=== PATIENT | male | born 1960 | race Caucasian/White ===

== ENCOUNTER 2017-10-01 11:47 | Inpatient (IN) | payer OTHER ==
[2017-09-28 15:42] LABS: BASOPHILS # (AUTO) 0.15 x10^3/uL (0-0.1); BASOPHILS % (AUTO) 2 % (0-1); EOSINOPHILS % (AUTO) 3 % (1-7); LYMPHOCYTES # (AUTO) 2.05 x10^3/uL (1-3.4); LYMPHOCYTES % (AUTO) 21 % (22-44); MD NO; MEAN CORPUSCULAR HEMOGLOBIN 30.8 pg (27.5-34.5); MEAN CORPUSCULAR HGB CONC 34.6 g/dL (33.2-36.2); MEAN CORPUSCULAR VOLUME 89.2 fL (81-97); MEAN PLATELET VOLUME 8.4 fL (7.4-10.4); MONOCYTES # (AUTO) 0.99 x10^3/uL (0.2-0.8); MONOCYTES % (AUTO) 10 % (2-9); NEUTROPHILS % (AUTO) 64 % (42-75); PLATELET COUNT 286 x10^3/uL (130-400); RED BLOOD COUNT 4.93 x10^6/uL (4.38-5.82); RED CELL DISTRIBUTION WIDTH 13.1 % (9.4-14.8)
[2017-09-28 15:42] LABS: MICROSCOPIC NOT IND
[2017-09-28 15:44] LABS: CULTURE INDICATED? NO
[2017-09-28 15:49] LABS: INTERNATIONAL NORMALIZED RATIO 0.98 (0.93-1.1); PROTHROMBIN TIME 10.1 Seconds (9.6-11.5)
[2017-09-28 15:52] LABS: ANION GAP 7 mmol/L (5-15); CALCIUM 8.5 mg/dL (8.5-10.1); CHLORIDE 106 mmol/L (98-107); CREATININE 1.05 mg/dL (0.7-1.3)
[~2017-10-01] VITALS: Ht 175.3 cm; Wt 82.0 kg
[~2017-10-01 11:47] MED LIST: AMOX1TAB64 PO; BACITRACIN 50,000 UNIT ONE; CHOL10003 PO; CYCL-259 PO; FAMO-79 PO; GABA300C10 PO; GABA800T2 PO; HYDR-3307 PO; IBUP-11 PO; METH4TAB2 PO; ROSU10TA PO; THROMBIN 5,000 UNIT VIAL TP ONE; THYR60TA PO; synthroid PO
[2017-10-01 12:26] VITALS: BP 121/83
[2017-10-01] MEDS ORDERED: LACTATED RINGERS 1,000 ML IV SCH (12:31)
[2017-10-01] MEDS ORDERED: PNEUMOCOCCAL 23 VACCINE IM-VACC ONE (13:00)
[2017-10-01] MEDS ORDERED: PROPOFOL 100 ML ONE (13:59)
[2017-10-01] MEDS ORDERED: FENTANYL PF 250 MCG/5ML ONE (13:59)
[2017-10-01] MEDS ORDERED: MIDAZOLAM 1 MG/ML, 2ML ONE (13:59)
[2017-10-01] MEDS ORDERED: CEFAZOLIN 1,000 MG ONE ×2 (14:56)
[2017-10-01] MEDS ORDERED: ROCURONIUM 10 MG/ML,10ML ONE (15:08)
[2017-10-01] MEDS ORDERED: OXYcodone 5 MG/5 ML ORAL.SOL UDC PO PRN (15:30)
[2017-10-01] MEDS ORDERED: ONDANSETRON 2MG/ML, 2ML IVPush PRN (15:30)
[2017-10-01] MEDS ORDERED: ACETAMINOPHEN 325 MG TABLET PO PRN (15:30)
[2017-10-01] MEDS ORDERED: hydrALAzine 20 MG/ML, 1ML IV PRN (15:30)
[2017-10-01] MEDS ORDERED: PROMETHAZINE 12.5 MG SUPP PR PRN (15:30)
[2017-10-01] MEDS ORDERED: MEPERIDINE/PF 25MG/0.5ML IVPush PRN (15:30)
[2017-10-01] MEDS ORDERED: LABETALOL 5MG/ML, 20ML IV PRN ×2 (15:30→18:30)
[2017-10-01] MEDS ORDERED: DIAZEPAM 5 MG/ML, 2ML IVPush PRN (15:30)
[2017-10-01] MEDS ORDERED: ONDANSETRON 2MG/ML, 2ML ONE (15:59)
[2017-10-01] MEDS ORDERED: GLYCOPYRROLATE 0.4 MG/2 ML, 2ML ONE (16:01)
[2017-10-01] MEDS ORDERED: NEOSTIGMINE 1 MG/ML, 10ML ONE (16:01)
[2017-10-01] MEDS ORDERED: FENTANYL PF 100 MCG/2ML ONE (16:24)
[2017-10-01] MEDS ORDERED: HYDROmorphone 2 MG/ML, 1ML ONE (16:24)
[2017-10-01] MEDS ORDERED: ACETAMINOPHEN 650 MG/20.3 ML UDC ONE (16:24)
[2017-10-01] MEDS ORDERED: OXYcodone 5 MG/5 ML ORAL.SOL UDC ONE (16:25)
[2017-10-01] MEDS: FENTANYL PF 100 MCG/2ML IV PRN ×2 (16:33→16:41)
[2017-10-01] MEDS: HYDROmorphone 1 MG/ML, 1ML IV PRN ×3 (16:34→17:12)
[2017-10-01] MEDS ORDERED: BISACODYL 10 MG SUPP PR PRN (18:30)
[2017-10-01] MEDS ORDERED: ONDANSETRON 2MG/ML, 2ML IV PRN (18:30)
[2017-10-01] MEDS ORDERED: MAGNESIUM HYDROXIDE 8%, 30ML UDC PO PRN (18:30)
[2017-10-01] MEDS ORDERED: METHOCARBAMOL 1,000 MG in DEXTROSE 5% 100 ML IV ONE (18:30)
[2017-10-01] MEDS ORDERED: PROMETHAZINE 25 MG/ML, 1ML IM PRN (18:30)
[2017-10-01] MEDS ORDERED: DIPHENHYDRAMINE 50 MG CAPSULE PO PRN (19:00)
[2017-10-01] MEDS ORDERED: morphine SULFATE 10 MG/ML, 1ML IV PRN (19:00)
[2017-10-01] MEDS ORDERED: HYDROcodone/APAP 10/325 MG TABLET PO PRN (19:00)
[2017-10-01] MEDS ORDERED: ZOLPIDEM 5MG TABLET PO PRN (21:00)
[2017-10-01 21:30] VITALS: BP 119/58
[2017-10-01] MEDS: ATORVASTATIN 20 MG TABLET PO SCH (21:55)
[2017-10-01] MEDS: D5%-0.9% NACL+KCL 20MEQ 1,000 ML IV SCH (21:55)
[2017-10-01] MEDS: CEFAZOLIN PMX 1GM/50ML 50 ML IVPB SCH (22:34)
[2017-10-01 23:46] VITALS: BP 113/74
[2017-10-02] MEDS: METHOCARBAMOL 750 MG in DEXTROSE 5% 100 ML IV SCH ×3 (03:29→18:42)
[2017-10-02] MEDS ORDERED: LEVO125T PO (03:43)
[2017-10-02] MEDS ORDERED: LIOT5TAB3 PO (03:43)
[2017-10-02 03:51] VITALS: BP 104/68
[2017-10-02] MEDS ORDERED: ENOXAPARIN 40 MG/0.4 ML SQ SCH (06:00)
[2017-10-02] MEDS: LEVOTHYROXINE 125 MCG TABLET PO SCH (06:13)
[2017-10-02] MEDS: LIOTHYRONINE 5 MCG TABLET PO SCH ×3 (06:13→19:38)
[2017-10-02] MEDS: CEFAZOLIN PMX 1GM/50ML 50 ML IVPB SCH (06:14)
[2017-10-02 07:12] VITALS: BP 107/67
[2017-10-02] MEDS ORDERED: GABAPENTIN 400 MG CAPSULE PO SCH (08:00)
[2017-10-02] MEDS: SENNA/DOCUSATE TABLET PO SCH (09:10)
[2017-10-02 11:34] LABS: FREE T4 (FREE THYROXINE) 1.29 ng/dL (0.76-1.46); THYROID STIMULATING HORMONE 0.045 mIU/L (0.358-3.740)
[2017-10-02 13:16] VITALS: BP 113/71
[2017-10-02] MEDS ORDERED: DEXAMETHASONE 4 MG/ML, 5ML ONE (14:47)
[2017-10-02] MEDS: D5%-0.9% NACL+KCL 20MEQ 1,000 ML IV SCH ×2 (17:50→21:10)
[2017-10-02 19:03] VITALS: BP 139/85
[2017-10-02] MEDS: ATORVASTATIN 20 MG TABLET PO SCH (19:37)
[2017-10-02] MEDS: GABAPENTIN 400 MG CAPSULE PO SCH (19:37)
[2017-10-03 01:58] VITALS: BP 105/61
[2017-10-03] MEDS: METHOCARBAMOL 750 MG in DEXTROSE 5% 100 ML IV SCH ×3 (03:14→19:00)
[2017-10-03] MEDS: LEVOTHYROXINE 125 MCG TABLET PO SCH (04:07)
[2017-10-03] MEDS ORDERED: THROMBIN 5,000 UNIT VIAL TP ONE ×2 (06:32→09:17)
[2017-10-03] MEDS ORDERED: BUPIVACAINE/PF 0.5% ONE (06:32)
[2017-10-03] MEDS ORDERED: BACITRACIN 50,000 UNIT ONE (06:33)
[2017-10-03] MEDS ORDERED: EPINEPHRINE 1 MG/ML, 1ML ONE (06:33)
[2017-10-03] MEDS ORDERED: REMIFENTANIL 2 MG ONE ×2 (06:44→08:56)
[2017-10-03] MEDS ORDERED: PROPOFOL 10 MG/ML, 20ML ONE (06:44)
[2017-10-03] MEDS ORDERED: MIDAZOLAM 1 MG/ML, 2ML ONE (06:44)
[2017-10-03] MEDS ORDERED: LIDOCAINE-MPF 2% ,5ML ONE (06:44)
[2017-10-03] MEDS ORDERED: PROPOFOL 50 ML ONE ×2 (06:44→08:27)
[2017-10-03] MEDS ORDERED: FENTANYL PF 250 MCG/5ML ONE (06:44)
[2017-10-03] MEDS ORDERED: PHENYLEPHRINE 10 MG/ML ONE (06:49)
[2017-10-03] MEDS ORDERED: CEFAZOLIN 1,000 MG ONE ×3 (06:52→07:06)
[2017-10-03] MEDS ORDERED: ONDANSETRON 2MG/ML, 2ML ONE ×3 (06:53→07:06)
[2017-10-03] MEDS ORDERED: DEXAMETHASONE 4 MG/ML, 1ML ONE ×2 (06:53)
[2017-10-03] MEDS ORDERED: SUCCINYLCHOLINE 20 MG/ML, 10ML ONE (07:06)
[2017-10-03] MEDS ORDERED: NEOSTIGMINE 1 MG/ML, 10ML ONE (07:06)
[2017-10-03] MEDS ORDERED: BUPIVACAINE/PF-EPI 0.5% 1:200K INFIL ONE (08:00)
[2017-10-03] MEDS ORDERED: ACETAMINOPHEN 325 MG TABLET PO PRN (08:00)
[2017-10-03] MEDS ORDERED: LORazepam 2 MG/ML, 1ML IVPush PRN (08:00)
[2017-10-03] MEDS ORDERED: HYDROmorphone 1 MG/ML, 1ML IV PRN (08:00)
[2017-10-03] MEDS ORDERED: LABETALOL 5MG/ML, 20ML IV PRN (08:00)
[2017-10-03] MEDS ORDERED: hydrALAzine 20 MG/ML, 1ML IV PRN (08:00)
[2017-10-03] MEDS ORDERED: OXYcodone 5 MG/5 ML ORAL.SOL UDC PO PRN (08:00)
[2017-10-03] MEDS ORDERED: MEPERIDINE/PF 25MG/0.5ML IVPush PRN (08:00)
[2017-10-03] MEDS ORDERED: PROMETHAZINE 12.5 MG SUPP PR PRN (08:00)
[2017-10-03] MEDS ORDERED: ONDANSETRON 2MG/ML, 2ML IVPush PRN (08:00)
[2017-10-03] MEDS ORDERED: FENTANYL PF 100 MCG/2ML IV PRN (08:00)
[2017-10-03] MEDS ORDERED: KETAMINE 10 MG/ML, 20ML ONE (08:05)
[2017-10-03] MEDS ORDERED: BUPIVACAINE 0.25% ONE (09:14)
[2017-10-03] MEDS ORDERED: FENTANYL PF 100 MCG/2ML ONE (09:26)
[2017-10-03] MEDS: SENNA/DOCUSATE TABLET PO SCH (09:53)
[2017-10-03] MEDS: LIOTHYRONINE 5 MCG TABLET PO SCH ×2 (09:53→20:32)
[2017-10-03] MEDS: GABAPENTIN 400 MG CAPSULE PO SCH ×2 (09:53→20:32)
[2017-10-03] MEDS: CEFAZOLIN PMX 1GM/50ML 50 ML IV SCH ×2 (15:28→23:57)
[2017-10-03] MEDS: D5%-0.9% NACL+KCL 20MEQ 1,000 ML IV SCH (16:49)
[2017-10-03] MEDS: OXYcodone/APAP 5/325MG TABLET PO PRN ×2 (16:49→21:16)
[2017-10-03 18:54] VITALS: BP 108/68
[2017-10-03] MEDS ORDERED: METHOCARBAMOL 750 MG TABLET PO SCH (20:00)
[2017-10-03] MEDS: ATORVASTATIN 20 MG TABLET PO SCH (20:31)
[2017-10-03] MEDS ORDERED: METHOCARBAMOL 1,000 MG in DEXTROSE 5% 100 ML IV ONE (21:00)
[2017-10-03] MEDS ORDERED: METHOCARBAMOL 750 MG TABLET PO PRN (21:00)
[2017-10-03 23:50] VITALS: BP 115/70
[2017-10-04] MEDS: OXYcodone/APAP 5/325MG TABLET PO PRN ×5 (00:50→20:36)
[2017-10-04 04:00] VITALS: BP 124/81
[2017-10-04 05:18] LABS: MEAN CORPUSCULAR HEMOGLOBIN 30.8 pg (27.5-34.5); MEAN CORPUSCULAR HGB CONC 33.8 g/dL (33.2-36.2); MEAN CORPUSCULAR VOLUME 91.1 fL (81-97); MEAN PLATELET VOLUME 9.1 fL (7.4-10.4); PLATELET COUNT 230 x10^3/uL (130-400); RED BLOOD COUNT 3.89 x10^6/uL (4.38-5.82)
[2017-10-04 05:22] LABS: ANION GAP 6 mmol/L (5-15); CALCIUM 8.3 mg/dL (8.5-10.1); CHLORIDE 106 mmol/L (98-107)
[2017-10-04 05:23] LABS: CREATININE 0.97 mg/dL (0.7-1.3)
[2017-10-04] MEDS: LEVOTHYROXINE 125 MCG TABLET PO SCH (05:35)
[2017-10-04] MEDS: METHOCARBAMOL 750 MG in DEXTROSE 5% 100 ML IV SCH ×3 (05:38→22:00)
[2017-10-04 05:44] LABS: BASOPHILS # (AUTO) 0.02 x10^3/uL (0-0.1); BASOPHILS % (AUTO) 0 % (0-1); EOSINOPHILS # (AUTO) 0.01 x10^3/uL (0-0.4); EOSINOPHILS % (AUTO) 0 % (1-7); LYMPHOCYTES # (AUTO) 1.67 x10^3/uL (1-3.4); LYMPHOCYTES % (AUTO) 11 % (22-44); MD SCAN; MONOCYTES # (AUTO) 1.71 x10^3/uL (0.2-0.8); MONOCYTES % (AUTO) 11 % (2-9); NEUTROPHILS # (AUTO) 12.19 x10^3/uL (1.8-6.8); NEUTROPHILS % (AUTO) 78 % (42-75)
[2017-10-04 06:53] VITALS: BP 109/66
[2017-10-04] MEDS: D5%-0.9% NACL+KCL 20MEQ 1,000 ML IV SCH ×2 (08:00→21:20)
[2017-10-04] MEDS: SENNA/DOCUSATE TABLET PO SCH (08:29)
[2017-10-04] MEDS: LIOTHYRONINE 5 MCG TABLET PO SCH ×2 (08:30→20:36)
[2017-10-04] MEDS: GABAPENTIN 400 MG CAPSULE PO SCH ×2 (08:30→20:35)
[2017-10-04 13:00] VITALS: BP 119/69
[2017-10-04 18:54] VITALS: BP 114/68
[2017-10-04] MEDS: ATORVASTATIN 20 MG TABLET PO SCH (20:35)
[2017-10-05 00:52] VITALS: BP 125/73
[2017-10-05] MEDS: OXYcodone/APAP 5/325MG TABLET PO PRN ×2 (00:59→05:59)
[2017-10-05 05:34] LABS: BASOPHILS # (AUTO) 0.08 x10^3/uL (0-0.1); BASOPHILS % (AUTO) 1 % (0-1); EOSINOPHILS # (AUTO) 0.14 x10^3/uL (0-0.4); EOSINOPHILS % (AUTO) 2 % (1-7); LYMPHOCYTES # (AUTO) 1.49 x10^3/uL (1-3.4); LYMPHOCYTES % (AUTO) 16 % (22-44); MD NO; MEAN CORPUSCULAR HEMOGLOBIN 30.9 pg (27.5-34.5); MEAN CORPUSCULAR HGB CONC 34.3 g/dL (33.2-36.2); MEAN CORPUSCULAR VOLUME 90.2 fL (81-97); MEAN PLATELET VOLUME 8.9 fL (7.4-10.4); MONOCYTES # (AUTO) 1.07 x10^3/uL (0.2-0.8); MONOCYTES % (AUTO) 11 % (2-9); NEUTROPHILS # (AUTO) 6.62 x10^3/uL (1.8-6.8); NEUTROPHILS % (AUTO) 71 % (42-75); PLATELET COUNT 227 x10^3/uL (130-400); RED BLOOD COUNT 3.47 x10^6/uL (4.38-5.82)
[2017-10-05 05:38] LABS: CHLORIDE 103 mmol/L (98-107)
[2017-10-05 05:47] LABS: ANION GAP 7 mmol/L (5-15); CALCIUM 7.9 mg/dL (8.5-10.1); CREATININE 0.85 mg/dL (0.7-1.3)
[2017-10-05] MEDS: LEVOTHYROXINE 125 MCG TABLET PO SCH (05:51)
[2017-10-05] MEDS: METHOCARBAMOL 750 MG in DEXTROSE 5% 100 ML IV SCH (06:17)
[2017-10-05 06:42] VITALS: BP 141/72
[2017-10-05] MEDS ORDERED: DEXAMETHASONE 4 MG/ML, 1ML IV ONE (08:00)
[2017-10-05] MEDS: SENNA/DOCUSATE TABLET PO SCH (08:30)
[2017-10-05] MEDS: LIOTHYRONINE 5 MCG TABLET PO SCH (08:30)
[2017-10-05] MEDS: GABAPENTIN 400 MG CAPSULE PO SCH (08:30)
[2017-10-05] MEDS ORDERED: METH750T2 PO (08:57)
[2017-10-05] MEDS ORDERED: OXYC5CAP2 PO (09:28)
[2017-10-05] MEDS ORDERED: DOXY100C2 PO (09:29)
[2017-10-05] MEDS ORDERED: METHOCARBAMOL 750 MG TABLET PO SCH (21:00)
== END 2017-10-05 09:50 | disposition home or self-care (01) | DRG 455 ==
LOC: ORIP 11:47 → MERGE 15:30 → 4NOR 17:23 → DCLOUNGE 10-05 09:27
PROVIDERS: ADMIT Neurological Surgery; ATTEND Neurological Surgery
PROC: 0SG30A0 Fusion of Lumbosacral Joint with Interbody Fusion Device, Anterior Approach, Anterior Column, Open Approach (ICD-10-PCS; 2017-10-01)
PROC: 0SB40ZZ Excision of Lumbosacral Disc, Open Approach (ICD-10-PCS; 2017-10-01)
PROC: 4A11X4G Monitoring of Peripheral Nervous Electrical Activity, Intraoperative, External Approach (ICD-10-PCS; 2017-10-01)
PROC: 0SG00AJ Fusion of Lumbar Vertebral Joint with Interbody Fusion Device, Posterior Approach, Anterior Column, Open Approach (ICD-10-PCS; 2017-10-03)
PROC: 01NB0ZZ Release Lumbar Nerve, Open Approach (ICD-10-PCS; 2017-10-03)
PROC: 4A11X4G Monitoring of Peripheral Nervous Electrical Activity, Intraoperative, External Approach (ICD-10-PCS; 2017-10-03)
PROC: 0SG3071 Fusion of Lumbosacral Joint with Autologous Tissue Substitute, Posterior Approach, Posterior Column, Open Approach (ICD-10-PCS; principal; 2017-10-03 07:00)
DX: M48.061 Spinal stenosis, lumbar region without neurogenic claudication (principal); G89.29 Other chronic pain; M25.78 Osteophyte, vertebrae; M43.17 Spondylolisthesis, lumbosacral region; M51.17 Intervertebral disc disorders with radiculopathy, lumbosacral region
CPT/HCPCS: 36415; 71046; 72100; 72131; 74018; 76001; 80048; 81003; 82306; 84439; 84443; 84481; 85025; 85610; 85730; 86850; 86900; 90732; 93005; C1713; J0171; J0690; J1100; J1170; J1650; J2250; J2270; J2405; J2704; J2710; J3010; J3490; C1751; C1762; J0330; J2370; J2800; J3480; J7120